=== PATIENT | male | born 1975 | race Hispanic/Latino ===

== ENCOUNTER 2019-12-25 13:42 | Emergency (ER) | payer OTHER ==
[2019-12-25 16:04] VITALS: BP 139/90
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
== END 2019-12-25 16:13 | disposition home or self-care (01) ==
LOC: EDBD → ED 13:42
DX: S16.1XXA Strain of muscle, fascia and tendon at neck level, initial encounter (principal); M54.5 Low back pain; V87.7XXA Person injured in collision between other specified motor vehicles (traffic), initial encounter; Y93.89 Activity, other specified; Y92.89 Other specified places as the place of occurrence of the external cause; Y99.8 Other external cause status
CPT/HCPCS: 99282